=== PATIENT | female | born 1995 | race Two or more races ===

== ENCOUNTER 2019-06-09 19:32 | Emergency (ER) | payer SELFPAY ==
[~2019-06-09] VITALS: Ht 157.5 cm; Wt 90.9 kg
[~2019-06-09 19:32] MED LIST: NOCURR
[2019-06-09] MEDS ORDERED: LIDOCAINE 1%/EPI 1:200,000/PF 10 ML VIAL INJ ONE (21:45)
[2019-06-09] MEDS ORDERED: PERTUSS(ACELL),DIPH,TET VAC/PF 0.5 ML VIAL IM ONE (22:30)
[2019-06-09 22:33] VITALS: BP 135/80
== END 2019-06-09 23:11 | disposition home or self-care (01) ==
LOC: EMS 19:32
DX: S81.011A Laceration without foreign body, right knee, initial encounter (principal); W25.XXXA Contact with sharp glass, initial encounter; Y93.89 Activity, other specified; Y92.89 Other specified places as the place of occurrence of the external cause; Y99.8 Other external cause status
CPT/HCPCS: 12002; 90471; 90715; 99283; J3490